=== PATIENT | female | born 1965 | race Caucasian/White ===

== ENCOUNTER 2018-02-14 11:47 | Outpatient (CLI) | payer BC ==
--- NOTE | 2018-02-14 13:58 | RAD ---
CHEST PA AND LATERAL: History: 52-year-old female with cough and fullness in the left perihilar region on a prior outside exam. FINDINGS: There appears to be some minimal linear and parenchymal changes vertically oriented in the lung bases . There is some rotation to the left. There is atherosclerosis of the aorta. There is some dextroscol iosis of the midthoracic vertebral column. IMPRESSION: Some nonspecific vertically oriented linear and parenchymal changes in the lung bases. Rotation to th e left. Dextroscoliosis of the thoracic spine. Atherosclerosis of the aorta with some ectasia. No ove rt mass or confluent pneumonia. Given concern for left perihilar fullness, follow up chest CT scan is recommended. POS: ANÍBAL
== END 2018-02-14 11:48 | disposition home or self-care (01) ==
LOC: SCSRAD 11:47
PROVIDERS: ATTEND Family Medicine
DX: R93.8 Abnormal findings on diagnostic imaging of other specified body structures (principal); M41.84 Other forms of scoliosis, thoracic region; I70.0 Atherosclerosis of aorta; I77.810 Thoracic aortic ectasia
CPT/HCPCS: 71046

== ENCOUNTER 2018-03-03 13:38 | Outpatient (CLI) | payer BC ==
--- NOTE | 2018-03-03 15:21 | CT ---
CT THORAX WITH IV CONTRAST: INDICATION: History of abnormal chest radiograph. COMPARISON: Chest radiograph dated 02/14/18. FINDINGS: Linear parenchymal opacities described in the chest radiograph likely related to areas of areas of robertson bsegmental volume loss of portions of the superior segment of both lower lobes, left greater than rig ht. It does extend from the perihilar regions. There is an 8 mm pulmonary nodule within the region of the right upper lobe on image 32 of series 3. Other additional smaller sub-4 mm pulmonary nodules are seen within the right upper lobe on image 31 of series 3, image 9 of series 3, left upper lobe o n image 15 of series 3, and image 23 of 33. No enlarged lymph nodes are evident. Small 5 mm hypodensity within the central right hepatic lobe on image 46 of series 2. There are numerous gallstones. There is a 3 mm stone involving the left mid kidney. There are mild shotty lymph nodes seen within the central mesenteric root with mild central mesenteric stranding. T here is sclerosis. There is prominent hemangioma within the T10 vertebral body, the greatest suspect ed hemangioma within the T1 vertebral body. There is a small suspected hemangioma within the proxima l sternal body. There is thoracolumbar scoliosis. IMPRESSION: 1. The perihilar streaky opacity is likely related to areas of subsegmental volume versus scar. 2. Scattered pulmonary nodules, the largest being 8 mm within the right upper lobe. Followup CT exa mination in 3-6 months without contrast recommended to document stability. 3. Small hypodensity within the right hepatic lobe, too small to fully characterize but statisticall y likely reflective of small cyst. 4. Cholelithiasis. 5. 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 This also can be s econdary to pancreatitis, lymphoma, or carcinoid tumor; however, these are felt to be less likely. 6. Left nephrolithiasis. 7. Chronic osseous changes. POS: ERUMH
== END 2018-03-03 13:39 | disposition home or self-care (01) ==
LOC: SCSCT 13:38
PROVIDERS: ATTEND Family Medicine
DX: R93.8 Abnormal findings on diagnostic imaging of other specified body structures (principal); K80.20 Calculus of gallbladder without cholecystitis without obstruction; N20.0 Calculus of kidney; R91.8 Other nonspecific abnormal finding of lung field; R93.2 Abnormal findings on diagnostic imaging of liver and biliary tract
CPT/HCPCS: 71260

== ENCOUNTER 2018-08-04 09:44 | Outpatient (CLI) | payer BC ==
[~2018-08-04 09:44] MED LIST: Iopamidol 200 41% 50 ML VIAL FS ONE; Iopamidol 370 76% 100 ML VIAL ONE
--- NOTE | 2018-08-04 12:56 | CT ---
CT CHEST WITH CONTRAST CT ABDOMEN WITH CONTRAST CT PELVIS WITH CONTRAST: COMPARISON: Chest CT 03/03/2018. TECHNIQUE: Chest, abdomen, and pelvic CT are performed with contrast. Coronal reformatted images are submitted for interpretation. FINDINGS: CHEST CT: No mediastinal mass, lymphadenopathy, or hematoma. Heart size is within normal limits. No pericardi al effusion. The thoracic and abdominal aorta have a normal caliber. No periaortic fat stranding. Trachea and central bronchi are patent. No pleural effusion or pneumothorax. Stable 2-3 mm nodules in the right lung apex. There is a stable 3 mm nodule in the right upper lobe. There is a stable 8 mm nodular density in the anterior aspect of the middle lobe. Stable 3 x 6 mm nodule in the left upp er lobe. Patchy ground-glass opacities and linear opacities are also unchanged. No new masses or ar eas of consolidation. ABDOMEN CT: Stable hypodensity in the right hepatic lobe measuring approximately 6 mm. Hypodense lesion is too s mall to further characterize. Spleen, pancreas, and adrenal glands are unremarkable. Symmetric enhancement of the kidneys. There is a nonobstructing calculus in the left renal pelvis. Bilaterally, no obstructive uropathy. CT evidence of cholelithiasis without evidence of cholecystitis. Gastric mucosa, duodenum, and multiple normal-caliber small bowel loops are identified. Ileocecal ju nction is normal. Normal-caliber appendix. Contrast and fecal material in a nondistended, nondilate d colon. Mucosal prominence of the left hemicolon is likely due to inadequate distention. If there is concern for colonic-based pathology, colonoscopy is recommended. No gastrohepatic, retrocrural, or periportal lymphadenopathy. There are a few scattered nonspecific enlarged lymph nodes in the left upper quadrant mesentery. Rep resentative lymph node measures 1.[address] PELVIS: Uterus and right adnexal structures are unremarkable. A 1.8 x 1.6 cm hypodensity in the left adnexa. No pelvic mass, lymphadenopathy, free air, or free fluid. Unremarkable urinary bladder. No lytic or blastic lesion in the osseous structures. At approximately the T10 level, there appears to be an osseous hemangioma involving the left aspect of the vertebral body. IMPRESSION: 1. Stable nodules in the lung parenchyma. 2. Stable hepatic hypodensity, too small to characterize. 3. Mucosal prominence of the left hemicolon which is presumed to be due to inadequate distention. C olonoscopy is recommended for better interrogation. 4. Hypodensity in the left adnexa which may be of ovarian origin. Pelvic ultrasound is recommended. 5. CT evidence of cholelithiasis without evidence of cholecystitis. POS: ERUM
== END 2018-08-04 09:45 | disposition home or self-care (01) ==
LOC: SCSCT 09:44
PROVIDERS: ATTEND Family Medicine
DX: R91.1 Solitary pulmonary nodule (principal); R93.89 Abnormal findings on diagnostic imaging of other specified body structures; R91.8 Other nonspecific abnormal finding of lung field; K76.89 Other specified diseases of liver; N83.8 Other noninflammatory disorders of ovary, fallopian tube and broad ligament; K80.20 Calculus of gallbladder without cholecystitis without obstruction
CPT/HCPCS: 71260; 74177

== ENCOUNTER 2019-03-05 15:17 | Outpatient (CLI) | payer BC ==
[2019-03-05 16:05] LABS: #Basophils 0.1 thou/uL (0.0-0.2); #Eosinphils 0.3 thou/uL (0.0-0.7); #Lymphocytes 0.8 thou/uL (1.20-3.40); #Monocytes 0.4 thou/uL (0.11-0.59); #Neutrophils 5.5 thou/uL (1.40-6.50); %Basophils 0.9 % (0.0-1.0); %Eosinophils 3.7 % (0.0-10.0); %Lymphocytes 11.3 % (21.0-51.0); %Monocytes 6.1 % (0.0-10.0); Hemoglobin 12.1 g/dL (12.0-16.0); Mean Corpuscular HGB CONC 31.3 g/dL (32.0-36.0); Mean Corpuscular Hemoglobin 26.2 pg (27.0-31.0); Mean Corpuscular Volume 83.7 fL (78.0-98.0); Mean Platelet Volume 7.1 fL (7.4-10.4); Platelet Count 344 thou/uL (130-400); RBC Distribution Width 15.5 % (11.5-14.5); Red Blood Cell (RBC) Count 4.63 mill/uL (4.20-5.40)
[2019-03-05 16:14] LABS: ALT (SGPT) 10 U/L (8-55); AST (SGOT) 14 U/L (5-34); Albumin 3.8 g/dL (3.5-5.0); Alkaline Phosphatase 76 U/L (40-150); Anion Gap 14 mmol/L (10-20); BUN (Urea Nitrogen) 10 mg/dL (9.8-20.1); Bilirubin, Total 1.1 mg/dL (0.2-1.2); Calc. Creatinine Clearance 0 mL/min (70-130); Calcium 9.3 mg/dL (7.8-10.44); Carbon Dioxide 29 mmol/L (22-29); Chloride 102 mmol/L (98-107); Estimated GFR-MDRD 84; Globulin 3.7 g/dL (2.4-3.5); Glucose 103 mg/dL (70-105); Potassium 3.6 mmol/L (3.5-5.1); Protein, Total 7.5 g/dL (6.0-8.3); Sodium 141 mmol/L (136-145)
[2019-03-05 16:25] LABS: Free T4 (Free Thyroxine) 1.28 ng/dL (0.70-1.48); Thyroid Stimulating Hormone 2.8616 uIU/mL (0.35-4.94)
--- NOTE | 2019-03-05 16:35 | RAD ---
RIGHT FOOT THREE VIEWS: HISTORY: M79.671, pain and swelling. COMPARISON: None. FINDINGS: Some low-grade narrowing of the great toe metatarsophalangeal joint, as well as greater toe interphal angeal joint. 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 Mild degenerative disease between the anterior process of the calcaneus, the navicula, and the cuboid . No acute fracture or malalignment. Lisfranc interval is maintained. Mild soft tissue swelling. IMPRESSION: Soft tissue swelling with chronic osseous findings. POS: HOME
== END 2019-03-05 15:18 | disposition home or self-care (01) ==
LOC: SCSRAD 15:17
PROVIDERS: ATTEND Family Medicine
DX: M79.671 Pain in right foot (principal); M79.89 Other specified soft tissue disorders
CPT/HCPCS: 36415; 80053; 83880; 84439; 84443; 85025

== ENCOUNTER 2019-09-04 08:51 | Outpatient (CLI) | payer BC ==
--- NOTE | 2019-09-04 10:49 | CT ---
CT CHEST WITH CONTRAST CLINICAL INDICATION: Follow-up pulmonary nodules. COMPARISON: 03/03/2018 and study on 08/04/2018 FINDINGS: Aorta: The aorta is normal in caliber without evidence of an aortic dissection. Lungs: There has been interval development of reticulonodular densities in the lateral aspect left up per lobe. Parenchymal consolidation is now seen in the left upper lobe. Findings are worrisome for infectious process/pneumonia. Previously described pulmonary nodules in the right lung apex are again seen measuring 6 mm and 5 mm respectively. A pleural-based nodular density is again seen in the right middle lobe adjacent to the minor fissure. A few smaller approximately 3 mm nodular densities are also seen in the right midd le lobe adjacent to the minor fissure as well. A 4 mm pulmonary nodule is seen in the anteromedial and lower right upper lobe. These nodules were present on the prior exam and have not definitely peace ged in size. Reported measurement of the larger pleural-based nodule was 8 mm on the prior exam, but the nodule on the prior study actually measures approximately 10 mm. The differences in size betw een exams is likely related to slice selection. There is a tiny subcentimeter pleural-based nodular density posterior left upper lobe. The additional nodular density left upper lobe on the prior exam is not well delineated due to the area of consolidation now present. No discrete new pulmonary nodule is identified. No pleural effusion is seen. Mediastinum: There has been interval mild enlargement of mediastinal lymph nodes when compared to the prior exam, largest in a right paratracheal location upper mediastinum measuring 1.2 cm in short axis dimension. Prominent prevascular space lymph nodes are also identified largest measuring 1.1 cm. Few mildly prominent AP window lymph nodes are also identified. These lymph nodes may be reactive in origin. There are probable mildly enlarged left hilar lymph nodes as well. Thyroid gland: Normal in appearance where imaged. Osseous structures: Prominent right convex scoliosis thoracic spine is noted. Hemangioma in the T10 v ertebral body is again present. No suspicious lytic or sclerotic osseous lesions are appreciated. Chest wall: No abnormality visualized. Upper abdomen: There is a stable subcentimeter hypodense lesion again seen in the right hepatic lobe which is again too small to further characterize. Multiple gallbladder calculi are again noted. IMPRESSION: 1. Interval development of parenchymal consolidation as well as reticulonodular densities in the left upper lobe. Findings are worrisome for infectious process. Nodular densities are seen in the left hilar region which may be related to areas of consolidation or possibly lymphadenopathy. Follow-up to resolution is recommended to exclude possibility of an underlying neoplastic process. 2. Given differences in slice selection, the previously described nodules within the upper lobes bila terally are overall stable. 3. Mediastinal and probable left hilar lymphadenopathy which may be reactive in origin. However, as s tated above, follow-up evaluation is recommended to ensure resolution of the consolidation left upper lobe and to ensure resolution of the enlarged lymph nodes after treatment of presumed infectiou s process
== END 2019-09-04 08:52 | disposition home or self-care (01) ==
LOC: SCSCT 08:51
PROVIDERS: ATTEND Family Medicine
DX: J98.4 Other disorders of lung (principal); J18.1 Lobar pneumonia, unspecified organism
CPT/HCPCS: 71260

== ENCOUNTER 2019-11-15 10:48 | Outpatient (CLI) | payer BC ==
--- NOTE | 2019-11-15 13:41 | CT ---
CT CHEST WITHOUT CONTRAST: 11/15/19 INDICATIONS: Follow-up pneumonia. Comparison made to chest CT of 09/04/19 which showed infiltrative changes in the left upper lobe. Correlation also made to chest CT of 08/04/18. FINDINGS: Review of lung windows shows significant improvement in the left upper lobe inflammatory process desc ribed on the prior exam. The areas of consolidation and reticulonodular change described previously h ave resolved. There is some mild residual stranding in the left upper lobe at this site. There are tw o small residual nodules in the left upper lobe each measuring in the 3 mm range. There are two nodular densities seen within the fissures anterior right middle lobe which have been d escribed previously and remains stable. Mild stranding in both lower lobes noted. The nonspecific mediastinal adenopathy does not appear significantly changed. Small tiny cystic lesion in the right lobe of the liver is unchanged. IMPRESSION: Significant improvement in the infiltrative process in the left upper lobe when compared to prior exa m. There has been resolution of the infiltrate with some residual stranding in this region seen today . Bilateral lung nodules appear stable. Continued follow-up for these nodules is recommended with nonc ontrast CT in six months. POS: JOMAR
== END 2019-11-15 10:49 | disposition home or self-care (01) ==
LOC: SCSCT 10:48
PROVIDERS: ATTEND Family Medicine
DX: J18.9 Pneumonia, unspecified organism (principal); R91.8 Other nonspecific abnormal finding of lung field
CPT/HCPCS: 71250